=== PATIENT | female | born 1960 | race Caucasian/White ===

== ENCOUNTER 2016-08-10 18:41 | Emergency (ER) | payer OTHER ==
--- NOTE | ~2016-08-10 | CT52 ---
[facility] A Service of [facility] & [facility] RADIOLOGY TEXT RESULTS PATIENT: WALI RAMIREZ LOCATION: [facility] : 58 UNIT #: [id number] AGE: [address]: Erwin Smith MD SEX: F ORDER DR: [id number] [facility] [address] [place], [place] [address] [id number] E MR#: [id number] Acc #: [id number] NAME: WALI RAMIREZ : 1960 SEX: F STUDY DATE/TIME: 08/10/2016 19:40 UNIT: [facility] ROOM: STUDY DESCRIPTION: CT Cervical Spine Wo Cont Attending Physician: Erwin Smith M.D. Ordering Physician: Erwin Smith M.D. Primary Care Physician: Sofia Fields Aprn MEDICAL IMAGING REPORT This report is preliminary unless electronic signature is present EXAM CT of the cervical spine. HISTORY Lightheaded, neck pain on the left, dizziness beginning today. TECHNIQUE Transaxial imaging of the cervical spine was performed without contrast. There are multiplanar reconstructions. This CT exam was performed with one or more of the following radiation dose reduction techniques: automatic exposure control, adjustment of mA and/or kV according to patient size, and iterative reconstruction. FINDINGS There is disc space narrowing at C4-C5, C5-C6 and C6-C7 with reactive hypertrophic endplate changes and spur formation. There is advanced facet disease on the right at C3-C4. There is bilateral facet disease at C4-C5, C5-C6. The alignment is normal. No fractures are identified. There is left-sided foraminal stenosis at C4-C5 and C5-C6. No fractures or subluxation are identified. Advanced facet disease seen on the left T1-T2. CONCLUSION Advanced multilevel disc and facet disease throughout the lumbar spine and including the upper thoracic region. Evidence of neural foraminal stenosis more prevalent on the left than on the right. The patient has clearly radicular symptoms. Suggest further imaging by MR. Dictated by... Mina Montoya M.D. THIS IS AN ELECTRONICALLY VERIFIED REPORT Mina Montoya M.D. at 08/14/2016 5:10 PM [facility] A Service of [facility] & [facility] RADIOLOGY TEXT RESULTS PATIENT: WALI RAMIREZ LOCATION: [facility] #: [id number] : 58 UNIT #: [id number] AGE: [address]: Erwin Smith MD SEX: F ORDER DR: PRASHANT/darryl TD: 08/11/2016 08:52 JOB #: [id number] MEDICAL IMAGING REPORT Page 1 of 1 COPY
--- NOTE | ~2016-08-10 | CT71 ---
[facility] A Service of [facility] RADIOLOGY TEXT RESULTS PATIENT: WALI RAMIREZ LOCATION: [facility] : 58 UNIT #: [id number] AGE: [address]: Erwin Smith MD SEX: F ORDER DR: [id number] [facility] [address] [place], [place] [address] [id number] E MR#: [id number] Acc #: [id number] NAME: WALI RAMIREZ : 1960 SEX: F STUDY DATE/TIME: 08/10/2016 18:47 UNIT: [facility] ROOM: STUDY DESCRIPTION: CT Head Wo Contrast Attending Physician: Erwin Smith M.D. Ordering Physician: Erwin Smith M.D. Primary Care Physician: Sofia Fields Aprn MEDICAL IMAGING REPORT This report is preliminary unless electronic signature is present EXAM CT brain without contrast media, 08/10/2016 COMPARISON 05/12/2014 HISTORY Lightheadedness, near-syncope, dizziness beginning today. TECHNIQUE Transaxial imaging of the brain was performed without contrast. This CT exam was performed with one or more of the following radiation dose reduction techniques: automatic exposure control, adjustment of mA and/or kV according to patient size, and iterative reconstruction. COMPARISON Compared directly to the patient's previous noncontrast scan of 05/12/2014. FINDINGS Ventricular size configuration is normal. No intra or extraaxial mass lesions, fluid collections or mass effect are seen. No focal areas of low attenuation or evidence of hemorrhage. Bone windows are reviewed and appear unremarkable. CONCLUSION Negative noncontrast CT of the brain. Dictated by... Mina Montoya M.D. THIS IS AN ELECTRONICALLY VERIFIED REPORT Mina Montoya M.D. at 08/14/2016 5:10 PM [facility] A Service of [facility] RADIOLOGY TEXT RESULTS PATIENT: WALI RAMIREZ LOCATION: [facility] : 58 UNIT #: [id number] AGE: [address]: Erwin Smith MD SEX: F ORDER DR: PRASHANT/leonela TD: 08/11/2016 08:18 JOB #: [id number] MEDICAL IMAGING REPORT Page 1 of 1 COPY
--- NOTE | ~2016-08-10 | EKG ---
PATIENT: WALI RAMIREZ UNIT #: [id number] Ventricular Rate: 76 BPM Atrial Rate: 76 BPM P-R Interval: 138 ms QRS Duration: 80 ms Q-T Interval: 434 ms QTC Calculation(Bezet): 488 ms P [place]: 19 degrees Calculated R [place]: 35 degrees Calculated T [place]: 32 degrees Diagnosis Line: Normal sinus rhythm Diagnosis Line: Prolonged QT Diagnosis Line: Abnormal ECG Diagnosis Line: When compared with ECG of 26-DEC-2015 14:03, Diagnosis Line: Vent. rate has decreased BY 40 BPM Diagnosis Line: T wave inversion no longer evident in Anterior Diagnosis Line: leads Diagnosis Line: Confirmed by JESUS ROTHMAN MD ([id number]) on 08/11/2016 Diagnosis Line: 12:07:46 PM INTERPRETING MD: LORNA BRINK
--- NOTE | ~2016-08-10 | CR72 ---
[facility] A Service of [facility] & [facility] RADIOLOGY TEXT RESULTS PATIENT: WALI RAMIREZ LOCATION: [facility] : 58 UNIT #: [id number] AGE: [address]: Erwin Smith MD SEX: F ORDER DR: [id number] [facility] [address] [place], [place] [address] [id number] E MR#: [id number] Acc #: [id number] NAME: WALI RAMIREZ : 1960 SEX: F STUDY DATE/TIME: 08/10/2016 18:33 UNIT: [facility] ROOM: STUDY DESCRIPTION: CR Chest Single View Portable Attending Physician: Erwin Smith M.D. Ordering Physician: Erwin Smith M.D. Primary Care Physician: Sofia Fields Aprn MEDICAL IMAGING REPORT This report is preliminary unless electronic signature is present EXAM AP chest radiograph 08/10/2016 COMPARISON 12/26/2015 HISTORY Dizziness, weakness, lightheadedness, beginning today, wheezing. An AP view is obtained. FINDINGS The cardiovascular configuration remains stable and the lungs are clear. CONCLUSION Stable chest. No active disease. Dictated by... Mina Montoya M.D. THIS IS AN ELECTRONICALLY VERIFIED REPORT Mina Montoya M.D. at 08/14/2016 5:10 PM PRASHANT/melissa TD: 08/11/2016 08:10 JOB #: [id number] MEDICAL IMAGING REPORT Page 1 of 1 COPY
[~2016-08-10 18:41] MED LIST: ADVAIR 2501 DISK W/D PO; ALBUTEROL17 GM INH; ALPRAZOLAM PO; ALPRAZOLAM1 MG PO; AMBIEN10 MG PO; ASPIRIN81 M2 PO; BUPROPION XL150 MG PO; CIPRO250 MG PO; COLACE PO; COMBIVENT U/D3 M2 INH; COMBIVENT U/D3 ML INH; DESYREL50 MG PO; ESCITALOPRAM OX20 MG PO; ESOMEPRAZOLE MA40 MG PO; FERROUS SULFATE PO; FLEXERIL10 MG PO; GABAPENTIN300 M2 PO; GABAPENTIN300 MG PO; HUMIBID-LA600 MG PO; IBUPROFEN800 MG PO; LAMISIL PO; LEXAPRO PO; LEXAPRO20 MG PO; LIPITOR40 MG PO; LISINOPRIL; LISINOPRIL-HCTZ1 T15 PO; MACROBID100 M1 PO; METHADONE PO; MIRAPEX PO; MIRAPEX1 MG PO; NEURONTIN PO; NEXIUM20 MG PO; NICOTINE TRANSD14 MG EXT; NICOTINE TRANSD21 MG EXT; NORVASC PO; PERCOCET 5/321 UDTAB PO; PERCOCET 7.5-31 EACH PO; PERCOCET5/325 PO; PREDNISONE PO; PREDNISONE50 MG PO; PYRIDIUM PO; SYMBICORT INH; VESICARE PO; WELLBUTRIN SR150 MG PO; XANAX1 MG PO; ZEGERID40 MG/PKT PO; ZYRTEC10 M1 PO
[2016-08-10 18:46] LABS: BASOPHIL# 0.1 X10e3 (0-0.3); BASOPHIL% 0.8 % (0-2.5); EOSINOPHIL# 0.3 X10e3 (0-0.7); EOSINOPHIL% 3.8 % (0.0-7.0); HEMATOCRIT 42.2 % (35.0-45.0); HEMOGLOBIN 13.6 gm/dL (12.0-16.0); LYMPHOCYTE# 2.2 X10e3 (1.0-3.5); LYMPHOCYTE% 23.9 % (17.0-45.0); MEAN CELL VOLUME 86.8 FL (83-96); MEAN CORPUSCULAR HEMOGLOBIN 27.9 PG (28-34); MEAN CORPUSCULAR HGB CONC 32.1 g/dL (30-36); MEAN PLATELET VOLUME 9.4 FL (6.5-11.5); MONOCYTE# 0.8 X10e3 (0-1.0); MONOCYTE% 9.1 % (3.0-12.0); NEUTROPHIL# 5.7 X10e3 (1.5-7.1); NEUTROPHIL% 62.4 % (40-75); PLATELET COUNT 197 X10e3 (140-420); RED BLOOD COUNT 4.86 X10e (3.90-5.30); RED CELL DISTRIBUTION WIDTH 14.7 % (11.0-15.5); WHITE BLOOD COUNT 9.2 X10e3 (4.0-10.5)
[2016-08-10 18:51] LABS: POC - CKMB <1.0 ng/mL (0.0-7.9); POC - TROPONIN <0.05 ng/mL (<=0.05)
[2016-08-10 18:54] LABS: DIFF IND NO
[2016-08-10 19:26] LABS: ALBUMIN SERUM 3.8 g/dL (3.5-5.0); ALKALINE PHOSPHATASE 117 U/L (32-92); ALT (SGPT) 19 U/L (10-40); AST (SGOT) 20 U/L (10-42); BILIRUBIN, DIRECT 0.1 mg/dL (0.0-0.2); BILIRUBIN,INDIRECT 0.5 mg/dL (0.0-0.9); BILIRUBIN,TOTAL 0.6 mg/dL (0.2-2.0); BLOOD UREA NITROGEN 34 mg/dL (9-23); CALCIUM SERUM 8.8 mg/dL (8.4-10.2); CARBON DIOXIDE 23 mmol/L (22-31); CHLORIDE 106 mmol/L (100-111); GLOM FILT RATE Estimated 27.3 mL/min (>60); GLUCOSE FASTING 140 mg/dL (70-110); POTASSIUM 3.7 mmol/L (3.5-5.1); PROTEIN TOTAL SERUM 6.7 g/dL (6.0-8.3); SALICYLATE <4.0 mg/dL; SODIUM 139 mmol/L (135-145)
[2016-08-10 19:27] LABS: ACETAMINOPHEN <10 ug/mL
[2016-08-10 20:49] LABS: URINE SOURCE CLEAN CATCH
[2016-08-10 20:55] LABS: URINE APPEARANCE CLEAR; URINE BILIRUBIN NEG (NEG); URINE BLOOD NEG (NEG); URINE COLOR DK YELLOW; URINE GLUCOSE NEG (NEG); URINE KETONE TRACE (NEG); URINE LEUKOCYTE ESTERASE NEG (NEG); URINE NITRATE NEG (NEG); URINE PROTEIN NEG (NEG); URINE SPECIFIC GRAVITY 1.024 (1.003-1.035); URINE UROBILINOGEN 0.2 MG/DL (NEG)
[2016-08-10 21:06] LABS: CULTURE INDICATED? NO
[2016-08-10 21:37] LABS: AMPHETAMINE NEG (NEG); BARBITURATES NEG (NEG); BENZODIAZEPINES NEG (NEG); COCAINE POS (NEG); MARIJUANA NEG (NEG); OPIATES NEG (NEG); TRICYCLIC ANTIDEPRESSANTS POS (NEG); U METHADONE NEG (NEG)
[2016-09-27] MEDS ORDERED: PERCOCET5/325 PO (08:35)
[2016-09-27] MEDS ORDERED: OMEPRAZOLE40 M1 PO (08:36)
[2016-09-27] MEDS ORDERED: NEURONTIN PO (08:38)
[2016-09-27] MEDS ORDERED: KLONOPIN1 MG PO (08:39)
== END 2016-08-10 22:57 | disposition home or self-care (01) ==
LOC: CED 18:41
PROVIDERS: Emergency Medicine
DX: I95.9 Hypotension, unspecified (principal); F19.10 Other psychoactive substance abuse, uncomplicated; I10 Essential (primary) hypertension; J44.9 Chronic obstructive pulmonary disease, unspecified; E11.9 Type 2 diabetes mellitus without complications; F17.200 Nicotine dependence, unspecified, uncomplicated; Z79.899 Other long term (current) drug therapy
CPT/HCPCS: 36415; 51701; 70450; 71010; 72125; 80048; 80076; 80307; 81003; 82553; 82947; 83605; 84443; 84484; 85025; 93005; 96360; 99291; G0480

== ENCOUNTER 2016-09-27 08:43 | Inpatient (IN) | payer OTHER ==
--- NOTE | ~2016-09-27 | CO ---
Unit #: [id number] #: [id number] Patient: WALI RAMIREZ [id number] [address] [place], [place] [address] [id number] I MR#: [id number] NAME: WALI RAMIREZ. ROOM: 333 Age: 56 Sex: F Admission Date: 09/27/2016 : 1960 Attending Physician: Angel Son M.D. Primary Care Physician: Sofia Fields, Anali Consultation Date: 09/28/2016 CONSULTATION REPORT REASON FOR CONSULTATION Acute kidney injury. HISTORY OF PRESENT ILLNESS Ms. Leti Ramirez is a 56-year-old white female, who has chronic medical problems including COPD with ongoing tobacco abuse, substance abuse with ongoing cocaine abuse, hypertension, dyslipidemia, anxiety, who came to the emergency room due to shortness of breath. She was hypoxemic on her ABG. She had used cocaine a couple of days ago. She denies any IV drug use. Her creatinine is elevated at 1.3. She also takes ibuprofen for pain and know she should not, because she has Brady esophagus. PAST MEDICAL HISTORY 1. COPD. 2. Ongoing tobacco abuse. 3. Hypertension. 4. Dyslipidemia. 5. Brady esophagus. PAST SURGICAL HISTORY Foot surgery, tonsillectomy, back surgery, . HOME MEDICATIONS Include Mirapex, Ventolin, Motrin, Zestoretic, Lexapro, tramadol, Klonopin, Neurontin, omeprazole, and Percocet. SOCIAL HISTORY She is not . She has a boyfriend whom she snorts cocaine with. She occasionally drinks alcohol and smokes cigarettes. FAMILY HISTORY Noncontributory. REVIEW OF SYSTEMS She complains of chronic cough. She also has had shortness of breath. She denies chest pain. No nausea, vomiting, or diarrhea. No urinary symptoms. She complains of some chronic back pain and she takes ibuprofen for and also heartburn. PHYSICAL EXAMINATION VITAL SIGNS: Her blood pressure is 106/78, heart rate is 84, temperature is 98.3. GENERAL: She is an obese white female, in no acute distress and she is walking around her hospital room without difficulty. Unit #: [id number] #: [id number] Patient: WALI RAMIREZ HEENT: Extraocular muscles are intact. No eye drainage or icterus. Oropharynx is clear without lesion. NECK: Supple without JVD, thyromegaly, or carotid bruit. CHEST: Shows bilateral expiratory wheezes. CARDIAC: S1, S2. No gallop or rub. Regular rate and rhythm. ABDOMEN: Soft, nontender, nondistended. Obese, protuberant, positive bowel sounds. EXTREMITIES: No cyanosis, clubbing, or edema. DIAGNOSTIC STUDIES LABORATORY RESULTS: Creatinine 1.5, sugar 158. Today's BUN is 22, creatinine 1.3, sodium 136, potassium 4.6, bicarbonate 25, phosphorus 3.5, calcium 8.9. Albumin 3.6. CPK is 96. Tox screen including acetaminophen and salicylate, negative. Urinalysis showed pH of 5.5, specific gravity of 1.029, protein is trace, blood is negative, hyaline casts 5 to 10, bacteria 1+. Culture is pending. White blood cell count is elevated at 16.7, hemoglobin 12.5, platelet count 188. ASSESSMENT AND PLAN 1. Acute kidney injury. Her creatinine is slightly better today at 1.3. She has multiple etiologies for her acute kidney injury including volume depletion, cocaine use, ibuprofen use in the setting of Zestoretic. Probably, we should take her off Zestoretic and not use this antihypertensive due to her lifestyle choices of drug use and ibuprofen use. I educated her to avoid cocaine and other drug use and also to not take NSAIDs including ibuprofen. Her urinalysis had trace protein and a little bit of pyuria, so we will see what the cultures show. She does have a white count, so she is covered with Rocephin 1 g q.24 hours. 2. Urinary tract infection, on Rocephin. 3. Chronic hypertension, currently on the low side. I agree with IV fluids and would hold Zestoretic and not restarted at discharge. 4. Chronic obstructive pulmonary disease exacerbation, on Solu-Medrol and inhalers. I counseled her to stop smoking. 5. Depressive disorder, on Lexapro and Klonopin. 6. History of Brady esophagus. She is on Pepcid. Thank you very much for allowing me to see Leti Rich in consultation. We will follow closely with you. Dictated by... Zahra Cintron M.D. RAJEEV/riley TD: 09/29/2016 06:50 JOB #: [id number] CONSULTATION REPORT Page 1 of 1 X Zahra Cintron MD CONSULTATION REPORT
--- NOTE | ~2016-09-27 | US77 ---
[facility] A Service of [facility] RADIOLOGY TEXT RESULTS PATIENT: WALI RAMIREZ LOCATION: [facility] : 58 UNIT #: [id number] AGE: [address]: Angel Son MD SEX: F ORDER DR: [id number] [facility] [address] [place], [place] [address] [id number] I MR#: [id number] Acc #: [id number] NAME: WALI RAMIREZ : 1960 SEX: F STUDY DATE/TIME: 09/28/2016 14:07 UNIT: C3A PCU ROOM: [address] [place] [address] DESCRIPTION: US Kidney Bilateral Complete Attending Physician: Angel Son M.D. Ordering Physician: Zahra Cintron M.D. Primary Care Physician: Sofia Fields Aprn MEDICAL IMAGING REPORT This report is preliminary unless electronic signature is present EXAM Renal ultrasound INDICATIONS Acute kidney injury, creatinine 1.3, eGFR 45.5, BUN 22. TECHNIQUE Singh-scale and Doppler imaging kidneys and bladder. COMPARISON 06/06/2015. FINDINGS Right kidney measures 9.4 cm. Bladder unremarkable. Left kidney measures 11.8 cm. No hydronephrosis. There is a hypoechoic lesion in the left kidney measures 2 cm. It is slightly decreased in size compared with the previous study. IMPRESSION 1. No hydronephrosis. 2. 2 cm hypoechoic lesion in the left mid kidney measures slightly smaller than on the previous study. It is indeterminate on this study but probably represents a benign cyst. Dictated by... Javier Arcos M.D. THIS IS AN ELECTRONICALLY VERIFIED REPORT Javier Arcos M.D. at 09/29/2016 7:05 AM EED/alexey TD: 09/28/2016 17:08 [facility] A Service [facility] RADIOLOGY TEXT RESULTS PATIENT: WALI RAMIREZ LOCATION: [facility]- : 58 UNIT #: [id number] AGE: [address]: Angel Son MD SEX: F ORDER DR: JOB #: [id number] MEDICAL IMAGING REPORT Page 1 of 1 COPY
--- NOTE | ~2016-09-27 | EKG ---
PATIENT: WALI RAMIREZ UNIT #: [id number] Ventricular Rate: 88 BPM Atrial Rate: 88 BPM P-R Interval: 126 ms QRS Duration: 84 ms Q-T Interval: 392 ms QTC Calculation(Bezet): 474 ms P [place]: -3 degrees Calculated R [place]: 38 degrees Calculated T [place]: 57 degrees Diagnosis Line: Normal sinus rhythm Diagnosis Line: Normal ECG Diagnosis Line: When compared with ECG of 10-AUG-2016 18:09, Diagnosis Line: No significant change was found Diagnosis Line: Confirmed by JESUS ROTHMAN MD ([id number]) on 09/27/2016 Diagnosis Line: 9:44:13 AM INTERPRETING MD: LORNA BRINK
--- NOTE | ~2016-09-27 | CO ---
Unit #: [id number] #: [id number] Patient: WALI RAMIREZ [id number] [address] [place], [place] [address] [id number] I MR#: [id number] NAME: WALI RAMIREZ. ROOM: 333 Age: 56 Sex: F Admission Date: 09/27/2016 : 1960 Attending Physician: Angel Son M.D. Primary Care Physician: Sofia Fields Aprn Consultation Date: 09/27/2016 CONSULTATION REPORT REASON FOR CONSULT Shortness of breath. HISTORY OF PRESENT ILLNESS This is a 56-year-old female with a past medical history significant for morbid obesity, hypertension, hyperlipidemia, and COPD, who presented to the emergency room with a few day history of progressive shortness of breath, chest tightness, wheezing, and dry cough causing flank pain. Patient stated that she takes some inhalers at home, but she is not on oxygen. Patient denied any nausea, vomiting, or diarrhea, and no chest pain. But again, she had flank pain from coughing. PAST MEDICAL HISTORY 1. Hypertension. 2. Hyperlipidemia. 3. Chronic obstructive pulmonary disease. 4. Anxiety. 5. Depression. PAST SURGICAL HISTORY 1. Tonsillectomy. 2. Foot surgery. 3. Back surgery. 4. section. 5. Bilateral tubal ligation. ALLERGIES No known drug allergies. HOME MEDICATIONS 1. Xanax. 2. Lipitor. 3. Wellbutrin. 4. Zyrtec. 5. Flexeril. 6. Lexapro. 7. Neurontin. 8. Percocet. 9. Symbicort. SOCIAL HISTORY Patient lives alone. She has one dog. She has smoked one pack per day Unit #: [id number] #: [id number] Patient: WALI RAMIREZ for at least 30 years. No history of alcohol or drug abuse. FAMILY HISTORY No coronary artery disease. REVIEW OF SYSTEMS A 12-point review of systems was obtained and was negative except for what was mentioned in the History of Present Illness. PHYSICAL EXAMINATION GENERAL: The patient is currently in no acute distress. However, he was in distress overnight and had to be placed on BiPAP. VITAL SIGNS: Temperature 101, pulse 105, respiratory rate 30 at presentation and currently is 22, and blood pressure 105/62. HEENT: Atraumatic, normocephalic. PERRLA. EOMI. NECK: Supple. No JVD. No lymphadenopathy. CHEST: Bilateral rhonchi and crackles with scattered wheezing. HEART: S1 and S2. No murmur, gallops, or rubs. ABDOMEN: Soft, nontender. Bowel sounds are positive. No hepatosplenomegaly. EXTREMITIES: No edema or cyanosis. SKIN: No rashes. CENTRAL NERVOUS SYSTEM: Awake, alert, oriented x3. No focal motor/sensory deficits. DIAGNOSTIC STUDIES LABORATORY: Blood gas showed a PO2 of 61. Creatinine 1.5. White blood count 10.1. IMAGING: Chest x-ray did not show any acute infiltrate. ASSESSMENT 1. Acute exacerbation of chronic obstructive pulmonary disease. 2. Questionable urinary tract infection. 3. Morbid obesity. 4. Likely obstructive sleep apnea. 5. Hypertension. PLAN 1. Will continue patient on IV steroid, bronchodilator, and mucolytics. 2. Pulmonary toilet including incentive spirometer and out of bed to chair with ambulation. 3. Azithromycin for COPD exacerbation and Rocephin for possible UTI. 4. DVT prophylaxis. 5. Gentle hydration. I would like to thank Dr. Son for allowing me to be part of this patient's care. Dictated by... Phillip Wynn M.D. EA/val TD: 09/27/2016 20:32 JOB #: [id number] Unit #: [id number] #: [id number] Patient: WALI RAMIREZ CONSULTATION REPORT Page 1 of 1 X PHILLIP LOMELI MD CONSULTATION REPORT
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
--- NOTE | ~2016-09-27 | US140 ---
[facility] A Service of [facility] RADIOLOGY TEXT RESULTS PATIENT: WALI RAMIREZ LOCATION: [facility] 333 : 59 UNIT #: [id number] AGE: [address]: Angel Son MD SEX: F ORDER DR: [id number] [facility] [address]. [place], [place] [address] [id number] I MR#: [id number] Acc #: [id number] NAME: WALI RAMIREZ : 1960 SEX: F STUDY DATE/TIME: 09/29/2016 12:56 UNIT: [address] ROOM: [address] [place] [address] DESCRIPTION: US UE Veins Unilat or Ltd Stdy Attending Physician: Angel Son M.D. Ordering Physician: Angel Son M.D. Primary Care Physician: Sofia Fields Aprn MEDICAL IMAGING REPORT This report is preliminary unless electronic signature is present EXAM Left upper extremity venous Doppler. INDICATION Pain in the left arm. This has been present for 1 month. Patient had a recent injury from a dog. TECHNIQUE Singh-scale, color Doppler, and spectral Doppler waveform analysis was performed through the patient's left upper extremity. TECHNIQUE Venous ultrasound examination of the left upper extremity was performed using grayscale, spectral Doppler and color flow Doppler imaging. FINDINGS The examination is negative. There is no evidence of deep venous thrombus within the left internal jugular vein, subclavian vein, axillary vein or brachial veins. No superficial venous thrombus is seen within the cephalic or basilic veins. IMPRESSION Negative examination. No evidence of left upper extremity venous thrombosis. Dictated by... Radha Sandoval M.D. THIS IS AN ELECTRONICALLY VERIFIED REPORT Radha Sandoval M.D. at 10/02/2016 4:51 PM AFF/tmw [facility] A Service of [facility] RADIOLOGY TEXT RESULTS PATIENT: WALI RAMIREZ LOCATION: [facility] 333- : 58 UNIT #: [id number] AGE: [address]: Angel Son MD SEX: F ORDER DR: TD: 09/29/2016 16:27 JOB #: [id number] MEDICAL IMAGING REPORT Page 1 of 1 COPY
--- NOTE | ~2016-09-27 | HP ---
Unit #: [id number] #: [id number] Patient: WALI RAMIREZ [id number] [address] [place], [place] [address] [id number] I MR#: [id number] NAME: WALI RAMIREZ ROOM: 333 Age: 56 Sex: F Admission Date: 09/27/2016 : 1960 Attending Physician: Angel Son M.D. Primary Care Physician: Sofia Fields Aprn HISTORY AND PHYSICAL ADMISSION DIAGNOSES 1. Acute hypoxemic respiratory failure. 2. Acute exacerbation of chronic obstructive pulmonary disease. 3. Questionable pneumonia. 4. Cocaine abuse. 5. Hypertension. 6. Dyslipidemia. 7. History of chronic pain. 8. History of anxiety and depression. 9. Chronic kidney disease. HISTORY OF PRESENT ILLNESS Ms. Wali Ramirez is a 56-year-old female, patient of Dr. Finch, who comes to the emergency room with the complaints of increasing shortness of air and dyspnea. Patient tells me that she has been having these problems ongoing for several weeks. She has been seen twice in the ER here and then went to [place] where she was diagnosed with strep, put on antibiotics, and sent out. Since then, patient was also seen by Dr. Finch and was treated with p.o. antibiotics. However, she comes in today with increasing shortness of air and dyspnea. She was found hypoxemic with ABGs showing a PO2 of 61.5. Her chest x-ray showed no evidence of acute infectious or inflammatory disease without any pleural effusion or pneumothorax. She also admits to some occasional chest discomfort but currently chest pain free. She admits to me that she has been using cocaine. The last time she used was about a couple of days ago. She also complains of some productive cough with some yellowish sputum. Denies any fevers or chills. Complains of shortness of air, dyspnea, and orthopnea. Denies any nausea, vomiting, diarrhea, or abdominal pain. So a 12-point review of systems on this patient basically is negative except as above. PAST MEDICAL HISTORY 1. Hypertension. 2. Dyslipidemia. 3. Chronic obstructive pulmonary disease. 4. Chronic kidney disease. 5. Chronic pain. 6. Anxiety. 7. Depression. PAST SURGICAL HISTORY 1. section. 2. Back surgery. 3. Foot surgery. 4. Tonsillectomy. Unit #: [id number] #: [id number] Patient: WALI RAMIREZ HOME MEDICATIONS 1. Percocet. 2. Omeprazole. 3. Neurontin. 4. Klonopin. 5. Tramadol. 6. Lexapro. 7. Zestoretic. 8. Motrin. 9. Ventolin. 10. Mirapex. SOCIAL HISTORY She is an active smoker, drinks occasionally, and does cocaine occasionally. FAMILY HISTORY Unremarkable. PHYSICAL EXAMINATION GENERAL: Patient is a 56-year-old female in no acute distress. VITAL SIGNS: Blood pressure 106/78, heart rate 84, respirations 18, and temperature 98.3. HEENT: Head is atraumatic. Pupils equal, round, and reactive to light and accommodation. Extraocular muscles intact. Oropharynx clear. NECK: Supple. No mass, no JVD, and no bruits. CHEST: Diminished bilaterally. CARDIOVASCULAR: S1 and S2. No murmurs. ABDOMEN: Soft, obese, nontender, and nondistended. LOWER EXTREMITIES: Without any cyanosis, clubbing, or edema. NEUROLOGIC: Grossly intact with no focal deficits. DIAGNOSTIC STUDIES LABORATORY: Blood gases as above. Chemistry shows creatinine of 1.5, GFR 38.3, and blood glucose 158. CBC unremarkable. Set of cardiac enzymes negative. IMAGING: Chest x-ray as above. ASSESSMENT AND PLAN 1. Acute hypoxemic respiratory failure, question congestive heart failure versus acute exacerbation of chronic obstructive pulmonary disease. Continue bronchodilators and steroids per Pulmonary. Will get a 2D echocardiogram, check BNP, and get Cardiology consult. 2. Cocaine use. Trend cardiac enzymes and follow up on 2D echocardiogram. Rule out cardiomyopathy. May need ischemic workup. Again, will get Cardiology on board. 3. Chronic kidney disease with questionable acute renal failure. Will discontinue nonsteroidal antiinflammatory drugs. She was on Motrin at home. Will stop the nonsteroidal inflammatory drugs. Monitor closely. Get Nephrology on board. 4. Hypertension. Continue home medications. 5. Dyslipidemia. Continue home medications. 6. Anxiety and depression, along with chronic pain. Continue home medications. 7. Gastrointestinal and deep venous thrombosis prophylaxis with Pepcid and Lovenox. Unit #: [id number] #: [id number] Patient: WALI RAMIREZ 1. Dictated by Kristal Roper/val TD: 09/27/2016 20:40 JOB #: [id number] HISTORY AND PHYSICAL Page 1 of 1 X Angel Son MD HISTORY AND PHYSICAL
--- NOTE | ~2016-09-27 | DS ---
Unit #: [id number] #: [id number] Patient: WALI RAMIREZ [id number] [address] [place], [place] [address] [id number] I MR#: [id number] NAME: WALI RAMIREZ. ROOM: 333 Age: 56 Sex: F Admission Date: 09/27/2016 : 1960 Discharge Date: 09/30/2016 Attending Physician: Angel Son M.D. Primary Care Physician: Sofia Fields, Shipping Coordinator DISCHARGE SUMMARY FINAL DIAGNOSES 1. Acute respiratory failure. 2. Acute chronic obstructive pulmonary disease exacerbation. 3. Klebsiella pneumoniae urinary tract infection. 4. Hypertension. 5. Chronic pain syndrome. 6. Nicotine abuse. 7. History of cocaine abuse. 8. Acute kidney injury which is improved. 9. Leukocytosis. Most likely secondary to steroids. 10. Morbid obesity. DISCHARGE MEDICATIONS 1. Ceftin 500 mg b.i.d. 2. Norvasc 10 mg daily. 3. Metformin 500 mg daily. 4. Prednisone 40 mg daily for 3 days, decreased 10 mg q.3 days until off. 5. Continue the rest of the home medications. CONSULTANTS Dr. Wynn from the pulmonary services. Dr. Buck from the cardiology services. Dr. Zahra Lyman from the nephrology services. HOSPITAL COURSE Ms. Wali Ramirez is a 56-year-old female who was admitted to the hospital with the diagnosis of acute hypoxic respiratory failure, acute on chronic exacerbation of chronic obstructive pulmonary disease. The patient was started on IV Solu-Medrol, IV antibiotics and nebulizer treatment. She is doing much better at this time. Dr. Wynn was involved in the patient's care. The patient would like to go home. The patient is stable enough to go home. The patient was also evaluated by cardiology for shortness of breath, but it seems like most of it was hypoxia secondary to acute exacerbation of her chronic obstructive pulmonary disease. The patient's echo was done about a year ago. She had a normal stress test done last year. Her EKG does not show anything acute. There was no other workup recommended per cardiology. The patient did have blsah-lc-ufasufi kidney failure. Nephrology was consulted. The patient was started on IV fluids and Dr. Zahra Lyman, test and balance engineer, involved in the patient's care. Acute kidney injury could Unit #: [id number] #: [id number] Patient: WALI RAMIREZ have multiple etiologies, like volume depletion, cocaine use, ibuprofen use in the setting of Zestoretic. Zestoretic was taken off during the hospitalization. We may need to keep that off to protect her kidneys. The patient has been taken off NSAIDs also. The patient needs to avoid cocaine and NSAIDs over the counter. The patient was found to have Klebsiella pneumoniae urinary tract infection. She received IV Rocephin during hospitalization. She has been changed to p.o. antibiotics. DIAGNOSTIC DATA LABORATORY: At discharge, sodium 133, potassium 4.3, chloride 101, BUN 24, creatinine 1.1, calcium 9.2. CBC shows white blood cell count 14.0, hemoglobin 12.4, hematocrit 39.3, and platelet count of 175. Glucose on discharge is 310. Hyperglycemia is most likely secondary to steroids. Because of this hyperglycemia, the patient is being started on metformin. I have discussed this with the patient. She needs to be evaluated as an outpatient for ongoing treatment if needed. I have explained to the patient that sugars might get better after she starts to taper her prednisone off. She does verbalize understanding. PHYSICAL EXAMINATION VITALS: Blood pressure 149/100, respiratory rate 18, pulse 114, temperature 97.6, oxygen saturation 96%. HEENT: Head is normocephalic. CHEST: Fair air entry. Few wheezing heard. HEART: S1 and S2 positive. Regular rhythm. ABDOMEN: Soft DISPOSITION The patient is being discharged home in stable condition. DISCHARGE INSTRUCTIONS 1. Medication as per medication reconciliation. 2. Follow up with primary care physician in one week. 3. The patient's diabetic medication needs to be evaluated as an outpatient. 4. Tobacco cessation counseling done. Dictated by... Kristal Rico TD: 10/01/2016 10:07 JOB #: [id number] Unit #: [id number] #: [id number] Patient: WALI RAMIREZ DISCHARGE SUMMARY Page 1 of 1 X Catherine Finch MD X DISCHARGE SUMMARY
--- NOTE | ~2016-09-27 | CR72 ---
[facility] A Service of [facility] RADIOLOGY TEXT RESULTS PATIENT: WALI RAMIREZ LOCATION: [facility] 333-01 : 58 UNIT #: [id number] AGE: [address]: Angel Son MD SEX: F ORDER DR: [id number] [facility] [address]. [place], [place] [address] [id number] MR#: [id number] Acc #: [id number] NAME: WALI RAMIREZ. : 1960 SEX: F STUDY DATE/TIME: 09/27/2016 8:23 UNIT: TYE ROOM: STUDY DESCRIPTION: CR Chest Single View Portable Attending Physician: Margot Garcia A.P.R.N. Ordering Physician: Ed Garcia Ruiz M.D. Primary Care Physician: Sofia Fields Aprn MEDICAL IMAGING REPORT This report is preliminary unless electronic signature is present EXAM Portable chest x-ray, 09/27/2016. HISTORY Shortness of air. Began today. Prior history of asthma. Prior history of smoking. TECHNIQUE AP radiograph of the chest is presented. COMPARISON STUDIES 08/10/2016 FINDINGS No acute bony abnormality. Heart upper limits of normal in size to borderline enlarged. Stable appearance. The lungs are well inflated. There is no evidence of acute infectious or inflammatory disease. No pleural effusion or pneumothorax. No suspicious nodule. Dictated by... Mina Pollard M.D. THIS IS AN ELECTRONICALLY VERIFIED REPORT Mina Pollard M.D. at 09/28/2016 10:53 PM MENDEL/stu TD: 09/27/2016 11:34 JOB #: [id number] MEDICAL IMAGING REPORT [facility] A Service of [facility] RADIOLOGY TEXT RESULTS PATIENT: WALI RAMIREZ LOCATION: [facility] 333-01 : 58 UNIT #: [id number] AGE: [address]: Angel Son MD SEX: F ORDER DR: Page 1 of 1 COPY
[2016-09-27 08:31] LABS: BASOPHIL# 0.1 X10e3 (0-0.3); BASOPHIL% 0.8 % (0-2.5); EOSINOPHIL# 0.3 X10e3 (0-0.7); EOSINOPHIL% 3.3 % (0.0-7.0); HEMATOCRIT 40.9 % (35.0-45.0); HEMOGLOBIN 13.3 gm/dL (12.0-16.0); LYMPHOCYTE# 2.7 X10e3 (1.0-3.5); LYMPHOCYTE% 26.6 % (17.0-45.0); MEAN CELL VOLUME 86.7 FL (83-96); MEAN CORPUSCULAR HEMOGLOBIN 28.1 PG (28-34); MEAN CORPUSCULAR HGB CONC 32.4 g/dL (30-36); MEAN PLATELET VOLUME 9.5 FL (6.5-11.5); MONOCYTE# 0.9 X10e3 (0-1.0); MONOCYTE% 8.8 % (3.0-12.0); NEUTROPHIL# 6.1 X10e3 (1.5-7.1); NEUTROPHIL% 60.5 % (40-75); PLATELET COUNT 187 X10e3 (140-420); RED BLOOD COUNT 4.72 X10e (3.90-5.30); RED CELL DISTRIBUTION WIDTH 14.7 % (11.0-15.5); WHITE BLOOD COUNT 10.1 X10e3 (4.0-10.5)
[2016-09-27 08:32] LABS: DIFF IND NO
[~2016-09-27 08:43] MED LIST changes: +KLONOPIN1 MG PO; +OMEPRAZOLE40 M1 PO
[2016-09-27] MEDS ORDERED: TRAMADOL HCL50 M2 PO (08:44)
[2016-09-27] MEDS ORDERED: LEXAPRO20 MG PO (08:44)
[2016-09-27] MEDS ORDERED: ALBUTEROL17 GM INH (08:45)
[2016-09-27] MEDS ORDERED: ZESTORETIC 20-1 EAC2 (08:45)
[2016-09-27] MEDS ORDERED: MOTRIN600 M1 PO (08:45)
[2016-09-27] MEDS ORDERED: MIRAPEX1 MG PO (08:47)
[2016-09-27 08:54] LABS: POC - CKMB <1.0 ng/mL (0.0-7.9); POC - TROPONIN <0.05 ng/mL (<=0.05)
[2016-09-27 09:02] LABS: ALBUMIN SERUM 3.6 g/dL (3.5-5.0); ALKALINE PHOSPHATASE 148 U/L (32-92); ALT (SGPT) 24 U/L (10-40); AST (SGOT) 20 U/L (10-42); BILIRUBIN,TOTAL 0.4 mg/dL (0.2-2.0); BLOOD UREA NITROGEN 20 mg/dL (9-23); BUN/CREATININE RATIO 13.33; CALCIUM SERUM 8.7 mg/dL (8.4-10.2); CARBON DIOXIDE 26 mmol/L (22-31); CHLORIDE 102 mmol/L (100-111); CREATININE SERUM 1.5 mg/dL (0.6-1.4); GLOM FILT RATE Estimated 38.3 mL/min (>60); GLUCOSE FASTING 158 mg/dL (70-110); POTASSIUM 3.6 mmol/L (3.5-5.1); SODIUM 138 mmol/L (135-145)
[2016-09-27 09:03] LABS: BILIRUBIN, DIRECT <0.1 mg/dL (0.0-0.2); BILIRUBIN,INDIRECT 0.3 mg/dL (0.0-0.9)
[2016-09-27 09:06] LABS: URINE SOURCE CLEAN CATCH
[2016-09-27 09:14] LABS: URINE APPEARANCE CLOUDY; URINE BILIRUBIN NEG (NEG); URINE BLOOD NEG (NEG); URINE COLOR DK YELLOW; URINE GLUCOSE NEG (NEG); URINE KETONE NEG (NEG); URINE LEUKOCYTE ESTERASE TRACE (NEG); URINE NITRATE NEG (NEG); URINE PH 5.5 (5-8); URINE PROTEIN TRACE (NEG); URINE SPECIFIC GRAVITY 1.029 (1.003-1.035)
[2016-09-27 09:16] LABS: CULTURE INDICATED? YES; URBCS1 AUWI 0-2 /[HPF] (0-2); URINE BACTERIA AUWI 1+ (NEGATIVE); URINE SQUAMOUS EPITHELIAL CELL FEW /[HPF]
[2016-09-27 10:10] LABS: INR 0.9; PARTIAL THROMBOPLASTIN TIME 26.8 SECONDS (23.5-31.3); PROTHROMBIN TIME (PATIENT) 9.6 SECONDS (9.6-11.5)
[2016-09-27 11:02] LABS: ARTERIAL BLOOD GAS ALLEN TEST POS; ARTERIAL BLOOD GAS ART SITE RIGHT RADIAL; ARTERIAL BLOOD GAS CARBOXY HB 2.9 %sat (0.0-9.0); ARTERIAL BLOOD GAS HCO3 26.9 mmol/L; ARTERIAL BLOOD GAS MET HB 1.1 %sat (0.0-2.0); ARTERIAL BLOOD GAS PCO2 41.7 mmHg (35.0-45.0); ARTERIAL BLOOD GAS PO2 61.5 mmHg (80.0-100); ARTERIAL BLOOD GAS pH 7.417 (7.350-7.450); ARTERIAL DRAW? YES
[2016-09-27 23:15] LABS: %MB 2.6 % (0.0-4.0)
[2016-09-28 04:26] LABS: HEMATOCRIT 38.9 % (35.0-45.0); HEMOGLOBIN 12.5 gm/dL (12.0-16.0); LYMPHOCYTE# 0.8 X10e3 (1.0-3.5); LYMPHOCYTE% 4.6 % (17.0-45.0); MEAN CELL VOLUME 86.1 FL (83-96); MEAN CORPUSCULAR HEMOGLOBIN 27.6 PG (28-34); MEAN CORPUSCULAR HGB CONC 32.1 g/dL (30-36); MEAN PLATELET VOLUME 9.8 FL (6.5-11.5); MONOCYTE# 0.6 X10e3 (0-1.0); MONOCYTE% 3.6 % (3.0-12.0); NEUTROPHIL# 15.3 X10e3 (1.5-7.1); NEUTROPHIL% 91.8 % (40-75); PLATELET COUNT 188 X10e3 (140-420); RED BLOOD COUNT 4.52 X10e (3.90-5.30); RED CELL DISTRIBUTION WIDTH 14.6 % (11.0-15.5)
[2016-09-28 04:28] LABS: DIFF IND YES; WHITE BLOOD COUNT 16.7 X10e3 (4.0-10.5)
[2016-09-28 04:43] LABS: BUN/CREATININE RATIO 16.92; CALCIUM SERUM 8.9 mg/dL (8.4-10.2); CREATININE SERUM 1.3 mg/dL (0.6-1.4); GLOM FILT RATE Estimated 45.5 mL/min (>60); POTASSIUM 4.6 mmol/L (3.5-5.1)
[2016-09-28 04:47] LABS: PLATELET ESTIMATE DECREASED (NORMAL); RBC NORMAL YES
[2016-09-28 05:00] LABS: %MB 3.2 % (0.0-4.0); MB 3.1 ng/ml
[2016-09-29 05:18] LABS: HEMATOCRIT 36.9 % (35.0-45.0); HEMOGLOBIN 11.6 gm/dL (12.0-16.0); MEAN CELL VOLUME 86.7 FL (83-96); MEAN CORPUSCULAR HEMOGLOBIN 27.2 PG (28-34); MEAN CORPUSCULAR HGB CONC 31.4 g/dL (30-36); MEAN PLATELET VOLUME 9.7 FL (6.5-11.5); RED BLOOD COUNT 4.26 X10e (3.90-5.30); RED CELL DISTRIBUTION WIDTH 14.4 % (11.0-15.5); WHITE BLOOD COUNT 19.4 X10e3 (4.0-10.5)
[2016-09-29 05:44] LABS: BUN/CREATININE RATIO 18.33; CALCIUM SERUM 9.2 mg/dL (8.4-10.2); CREATININE SERUM 1.2 mg/dL (0.6-1.4); GLOM FILT RATE Estimated 50.1 mL/min (>60); POTASSIUM 4.3 mmol/L (3.5-5.1)
[2016-09-30 07:43] LABS: HEMATOCRIT 39.3 % (35.0-45.0); HEMOGLOBIN 12.4 gm/dL (12.0-16.0); MEAN CELL VOLUME 87.6 FL (83-96); MEAN CORPUSCULAR HEMOGLOBIN 27.6 PG (28-34); MEAN CORPUSCULAR HGB CONC 31.5 g/dL (30-36); MEAN PLATELET VOLUME 10.6 FL (6.5-11.5); RED BLOOD COUNT 4.49 X10e (3.90-5.30); RED CELL DISTRIBUTION WIDTH 14.3 % (11.0-15.5)
[2016-09-30 09:34] LABS: BUN/CREATININE RATIO 21.81; CALCIUM SERUM 9.2 mg/dL (8.4-10.2); CREATININE SERUM 1.1 mg/dL (0.6-1.4); GLOM FILT RATE Estimated 55.7 mL/min (>60); POTASSIUM 4.3 mmol/L (3.5-5.1)
[2016-09-30] MEDS ORDERED: AMLODIPINE BESY10 MG PO (15:15)
[2016-09-30] MEDS ORDERED: ASPIRIN81 MG PO (15:17)
[2016-09-30] MEDS ORDERED: CEFTIN PO (15:18)
[2016-09-30] MEDS ORDERED: PREDNISONE10 M1 PO (15:20)
[2016-09-30] MEDS ORDERED: GLUCOPHAGE500 MG PO (15:21)
== END 2016-09-30 15:42 | disposition home or self-care (01) | DRG 189 ==
LOC: CED 08:43 → CEDOF 10:56 → C3A PCU 12:04
PROVIDERS: Hospitalist; Internal Medicine Nephrology; Nurse Practitioner
DX: J96.01 Acute respiratory failure with hypoxia (principal); N17.9 Acute kidney failure, unspecified; J44.1 Chronic obstructive pulmonary disease with (acute) exacerbation; E66.01 Morbid (severe) obesity due to excess calories; N39.0 Urinary tract infection, site not specified; G89.4 Chronic pain syndrome; F17.210 Nicotine dependence, cigarettes, uncomplicated; T38.0X5A Adverse effect of glucocorticoids and synthetic analogues, initial encounter; B96.1 Klebsiella pneumoniae [K. pneumoniae] as the cause of diseases classified elsewhere; Z68.30 Body mass index [BMI] 30.0-30.9, adult; F14.10 Cocaine abuse, uncomplicated; I12.9 Hypertensive chronic kidney disease with stage 1 through stage 4 chronic kidney disease, or unspecified chronic kidney disease; N18.9 Chronic kidney disease, unspecified; F32.9 Major depressive disorder, single episode, unspecified; F41.9 Anxiety disorder, unspecified; E78.5 Hyperlipidemia, unspecified; F10.10 Alcohol abuse, uncomplicated; G47.33 Obstructive sleep apnea (adult) (pediatric); Z87.442 Personal history of urinary calculi; Z98.51 Tubal ligation status; R22.1 Localized swelling, mass and lump, neck
CPT/HCPCS: 36415; 36600; 71010; 76770; 80048; 80076; 81003; 82550; 82553; 82803; 82947; 83605; 83880; 84484; 85025; 85027; 85610; 85730; 87040; 87086; 87088; 87186; 87651; 93005; 93971; 94640; 94760; 96374; 99285; J0456; J0696; J1650; J1815; J2920; J2930

== ENCOUNTER → 2016-10-12 | Outpatient (CLI) | payer OTHER ==
[~2016-10-12] MED LIST changes: +AMLODIPINE BESY10 MG PO; +ASPIRIN81 MG PO; +CEFTIN PO; +GLUCOPHAGE500 MG PO; +MOTRIN600 M1 PO; +PREDNISONE10 M1 PO; +TRAMADOL HCL50 M2 PO; +ZESTORETIC 20-1 EAC2
--- NOTE | ~2016-10-12 | CT92 ---
[facility] A Service of [facility] & [facility] RADIOLOGY TEXT RESULTS PATIENT: WALI RAMIREZ LOCATION: [facility] : 58 UNIT #: [id number] AGE: [address]: Mina Alvarado DPM SEX: F ORDER DR: [id number] [facility] [address] [place], [place] [address] [id number] O MR#: [id number] [facility] #: [id number] NAME: WALI RAMIREZ : 1960 SEX: F STUDY DATE/TIME: 10/12/2016 10:24 UNIT: [facility] ROOM: STUDY DESCRIPTION: CT Lower Ext Lt Wo Cont Attending Physician: Mina Alvarado D.P.M. Referring Physician: Mina Alvarado D.P.M. Ordering Physician: Mina Alvarado D.P.M. Primary Care Physician: Catherine Finch M.D. MEDICAL IMAGING REPORT This report is preliminary unless electronic signature is present EXAM CT left ankle. HISTORY Bilateral ankle pain for over 11 years. Left foot surgery x3, no details provided. Evaluate for OCD lesion of the talus. COMPARISON 3-phase bone scan, 10/12/2016. TECHNIQUE This CT exam was performed with one or more of the following radiation dose reduction techniques: automatic exposure control, adjustment of mA and/or kV according to patient size, and iterative reconstruction. FINDINGS Thin section axial images performed through the left ankle with multiplanar reconstructed images reviewed at a workstation. Plate and screw fixation instrumentation is seen along the lateral aspect of the distal fibula with proximal and distal screws. There are 2 interfragmentary screws. Subtle deformity of the distal fibula compatible with old healed oblique or short oblique fracture. The fracture is essentially healed. No loosening or fracturing of instrumentation. Normal alignment of the ankle joint. Talar dome appears intact without evidence of osteochondral lesion. Along the anterior aspect of the joint, there is a calcific density measuring about 2 mm in transverse dimensions and over 5 mm in length. This extends from the anterior tibial plafond along the joint line and could represent a potential loose body. No joint effusion. There is an os trigonum. The subtalar joint unremarkable. Mild arthritic changes at the talonavicular joint with some asymmetric joint space narrowing. [facility] A Service of [facility] RADIOLOGY TEXT RESULTS PATIENT: WALI RAMIREZ LOCATION: [facility] : 58 UNIT #: [id number] AGE: [address]: Mina Alvarado DPM SEX: F ORDER DR: Ankle soft tissues suggest a small amount of soft tissue swelling along the lateral aspect of the ankle. There is mild prominence of the inframalleolar peroneus longus tendon that could reflect mild tendinopathy or tenosynovitis. IMPRESSION 1. No evidence of osteochondral lesion of the talus. 2. Small calcific density projecting along the anterior tibial plafond. The exact nature of this is undetermined, could potentially represent a loose body, but may actually be extraarticular represent a small fragment from the anterior tibial plafond possibly degenerative in nature. 3. Mild prominence of the inframalleolar peroneus longus tendon suggesting tendinopathy and tenosynovitis. 4. Status post ORIF of a distal fibular fracture which appears well healed. Dictated by... Elizabeth Pena M.D. THIS IS AN ELECTRONICALLY VERIFIED REPORT Elizabeth Pena M.D. at 10/12/2016 10:34 PM Carlene TD: 10/12/2016 16:22 JOB #: [id number] MEDICAL IMAGING REPORT Page 1 of 1 COPY
--- NOTE | ~2016-10-12 | CT95 ---
[facility] A Service of [facility] & [facility] RADIOLOGY TEXT RESULTS PATIENT: WALI RAMIREZ LOCATION: [facility] : 58 UNIT #: [id number] AGE: [address]: Mina Alvarado DPM SEX: F ORDER DR: [id number] [facility] [address] [place], [place] [address] [id number] O MR#: [id number] Acc #: [id number] NAME: WALI RAMIREZ : 1960 SEX: F STUDY DATE/TIME: 10/12/2016 10:24 UNIT: [facility] ROOM: STUDY DESCRIPTION: CT Lower Ext Rt Wo Cont Attending Physician: Mina Alvarado D.P.M. Referring Physician: Mina Alvarado D.P.M. Ordering Physician: Mina Alvarado D.P.M. Primary Care Physician: Catherine Finch M.D. MEDICAL IMAGING REPORT This report is preliminary unless electronic signature is present EXAM Rarely CT right ankle HISTORY 56-year-old female with bilateral ankle pain for 11 years. History of right foot surgery. No details provided. Clinical concern for osteochondral lesion of the talus. FINDINGS Thin section axial images performed through the right ankle with multiplanar reconstructed images reviewed at a workstation. No fracture or malalignment. No osteochondral lesion of the talus. No joint effusion. Subtalar joint unremarkable. Ankle tendons and soft tissues unremarkable. Small plantar calcaneal enthesophyte noted. There is a partially fused os trigonum or posterior process of the talus normal anatomy. IMPRESSION Normal CT right ankle. Dictated by... Elizabeth Pena M.D. THIS IS AN ELECTRONICALLY VERIFIED REPORT Elizabeth Pena M.D. at 10/12/2016 10:34 PM GITA/darryl TD: 10/12/2016 16:15 JOB #: [id number] MEDICAL IMAGING REPORT Page 1 of 1 COPY
== END | disposition home or self-care (01) ==
LOC: CCAT 09:23
DX: M15.0 Primary generalized (osteo)arthritis (principal); M25.872 Other specified joint disorders, left ankle and foot; Z87.81 Personal history of (healed) traumatic fracture; Z98.890 Other specified postprocedural states
CPT/HCPCS: 73700

== ENCOUNTER → 2016-10-12 | Outpatient (CLI) | payer OTHER ==
--- NOTE | ~2016-10-12 | NM8 ---
[facility] A Service of [facility] RADIOLOGY TEXT RESULTS PATIENT: WALI RAMIREZ LOCATION: [facility] : 58 UNIT #: [id number] AGE: [address]: Daryl Martinez MD SEX: F ORDER DR: [id number] [facility] [address] [place], [place] [address] [id number] O MR#: [id number] Acc #: [id number] NAME: WALI RAMIREZ : 1960 SEX: F STUDY DATE/TIME: 10/12/2016 8:44 UNIT: [facility] ROOM: STUDY DESCRIPTION: AL Bone or Joint Whole Body Attending Physician: Daryl Martinez M.D. Referring Physician: Daryl Martinez M.D. Ordering Physician: Daryl Martinez M.D. Primary Care Physician: Catherine Finch M.D. MEDICAL IMAGING REPORT This report is preliminary unless electronic signature is present EXAM Whole-body bone scan HISTORY 56-year-old female; knee pain, hip pain, history of fall in September 2015. COMPARISON Bilateral knee films, 10/10/2016. TECHNIQUE 3-phase bone scan was performed, centered over the knees following the intravenous administration of 28.3 mCi technetium-99m MDP. FINDINGS Examination demonstrates symmetric flow to the knees. Immediate blood pool and delayed phase imaging demonstrates mild increased uptake within the medial compartment of both knees, right greater than left, corresponding to early degenerative changes noted on conventional radiographs. Symmetric uptake within the patellofemoral joints. There is increased uptake within the lateral aspect of the left ankle, particularly within the distal fibula, and this corresponds to apparent screws and plates in the left ankle following a fracture in January 2016. Normal symmetric uptake within the hips. Uptake within the remainder of the axial and appendicular skeleton is unremarkable. Bilateral renal activity and normal bladder activity noted. There is mild degenerative uptake, right midfoot. IMPRESSION 1. Mild increased uptake within the medial compartment of both knees, right greater than left, seen only on delayed-phase images. This corresponds to the plain film findings of early degenerative changes and degenerative arthropathy of both knees. 2. Increased uptake, distal fibula, most likely related to previous ORIF. [facility] A Service of [facility] RADIOLOGY TEXT RESULTS PATIENT: WALI RAMIREZ LOCATION: [facility] #: [id number] : 58 UNIT #: [id number] AGE: [address]: Daryl Martinez MD SEX: F ORDER DR: 3. Mild degenerative uptake, right midfoot. 4. Not mentioned above, there is a trace amount of increased uptake in the lower cervical spine to the left of midline, probably related to mild facet arthropathy. Dictated by... Elizabeth Pena M.D. THIS IS AN ELECTRONICALLY VERIFIED REPORT Elizabeth Pena M.D. at 10/12/2016 10:34 PM Gabo TD: 10/12/2016 16:17 JOB #: [id number] MEDICAL IMAGING REPORT Page 1 of 1 COPY
== END | disposition home or self-care (01) ==
LOC: CNUC 08:30
DX: M25.561 Pain in right knee (principal); M25.562 Pain in left knee; M17.0 Bilateral primary osteoarthritis of knee
CPT/HCPCS: 78306; A9503

== ENCOUNTER 2016-12-13 19:46 | Emergency (ER) | payer OTHER ==
--- NOTE | ~2016-12-13 | CR20 ---
[facility] A Service of [facility] & [facility] RADIOLOGY TEXT RESULTS PATIENT: WALI RAMIREZ LOCATION: [facility] : 58 UNIT #: [id number] AGE: [address]: Giorgio Tracy MD SEX: F ORDER DR: [id number] [facility] [address] [place], [place] [address] [id number] E MR#: [id number] Acc #: [id number] NAME: WALI RAMIREZ : 1960 SEX: F STUDY DATE/TIME: 12/13/2016 21:13 UNIT: [facility] ROOM: STUDY DESCRIPTION: CR Ankle Min 3 Views Lt Attending Physician: Giorgio Tracy M.D. Ordering Physician: Diogenes Ruiz M.D. Primary Care Physician: Catherine Finch M.D. MEDICAL IMAGING REPORT This report is preliminary unless electronic signature is present EXAM Left ankle, 3 views. HISTORY Ankle pain and swelling for 2 weeks following hardware removal. FINDINGS Three views of left ankle demonstrate soft tissue swelling over the lateral malleolus and lateral distal lower leg. Two fixation screws in the distal fibular metaphysis and additional screw tracts in the distal fibular shaft and lateral malleolus. Bone alignment is normal. No acute fracture or joint space narrowing. Dictated by... Howard Iglesias M.D. THIS IS AN ELECTRONICALLY VERIFIED REPORT Howard Iglesias M.D. at 12/14/2016 11:17 PM DFL/matthew TD: 12/14/2016 06:50 JOB #: [id number] MEDICAL IMAGING REPORT Page 1 of 1 COPY
== END 2016-12-13 23:00 | disposition left against medical advice (07) ==
LOC: CED 19:46
DX: G89.18 Other acute postprocedural pain (principal); G89.28 Other chronic postprocedural pain; J44.9 Chronic obstructive pulmonary disease, unspecified; D41.9 Neoplasm of uncertain behavior of unspecified urinary organ; F17.200 Nicotine dependence, unspecified, uncomplicated; Z79.899 Other long term (current) drug therapy
CPT/HCPCS: 73610; 96372; 99283; J1885